=== PATIENT | male | born 1980 | race African-American/Black ===

== ENCOUNTER 2017-04-13 18:10 | Emergency (ER) | payer MEDICAID ==
[~2017-04-13] VITALS: Ht 167.6 cm; Wt 72.6 kg
[2017-04-13 18:23] VITALS: BP 131/87
[2017-04-13] MEDS ORDERED: NORCO 5-325 TA1 EACH ORAL (20:10)
[2017-04-13] MEDS ORDERED: IBUPROFEN600 MG ORAL (20:10)
[2017-04-13 20:14] VITALS: BP 124/91
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
--- NOTE | 2017-04-14 09:56 | Diagnostic Imaging Report ---
Indication: Trauma Technique: Continuous helical transaxial imaging of the maxillofacial structures obtained without intravenous contrast administration. Coronal 2-D reformats were also obtained. Study obtained in a Siemens sensation [address] Total Dose length Product (DLP): [address] Dose Index Volume (CTDIvol): 28 mGy Comparison: None Findings: There is acute fracture of the anterior wall the left maxillary sinus extending into the inferior orbital floor. There is herniation of a small amount of orbital fat through the fracture defect. There is also fracture of the anteromedial part of the left orbit. The inferior rectus muscle does not appear entrapped. There is no retrobulbar hemorrhage or hematoma. There is no proptosis. There is mucosal thickening in ethmoid sinus. Impression: Acute fracture of the left orbital floor. No definite evidence of rectus muscle entrapment. Please correlate clinically. Mild fracture of the anteromedial orbit as well. Dr. Izquierdo has communicated the preliminary results to the Emergency Department. There are no significant discrepancies. The CT scanner at [facility] is accredited by the [employer] and the scans are performed using dose optimization techniques as appropriate to a performed exam including Automatic Exposure control.
== END 2017-04-13 20:14 | disposition home or self-care (01) ==
LOC: EMR 18:45
DX: S02.32XA Fracture of orbital floor, left side, initial encounter for closed fracture (principal); S01.511A Laceration without foreign body of lip, initial encounter; S02.80XA Fracture of other specified skull and facial bones, unspecified side, initial encounter for closed fracture; Y04.2XXA Assault by strike against or bumped into by another person, initial encounter; Y93.9 Activity, unspecified; Y92.9 Unspecified place or not applicable
CPT/HCPCS: 70486; 99284

== ENCOUNTER 2020-12-09 12:19 | Emergency (ER) | payer MEDICAID ==
[~2020-12-09] VITALS: Ht 175.3 cm; Wt 74.8 kg
[~2020-12-09 12:19] MED LIST: IBUPROFEN600 MG ORAL; NORCO 5-325 TA1 EACH ORAL
[2020-12-09 12:38] VITALS: BP 126/70
[2020-12-09] MEDS ORDERED: cefTRIAXone 1 GM in NS 55 ML IVPB ONE (13:00)
[2020-12-09] MEDS ORDERED: Lidocaine 2% Visc 15ml soln ORAL ONE (13:00)
[2020-12-09 13:08] LABS: BASOPHILS % (AUTO) 0.4 % (0.0-2.0); EOSINOPHILS % (AUTO) 0.1 % (0.0-3.0); HEMATOCRIT 44.8 % (42.0-52.0); HEMOGLOBIN 13.9 G/DL (14.2-18.0); LYMPHOCYTES % (AUTO) 6.9 % (20.0-45.0); MEAN CORPUSCULAR VOLUME 96 FL (80-99); MONOCYTES % (AUTO) 9.1 % (1.0-10.0); NEUTROPHILS % (AUTO) 83.4 % (45.0-75.0); PLATELET COUNT 252 K/UL (150-450); RED BLOOD COUNT 4.66 M/UL (4.70-6.10); RED CELL DISTRIBUTION WIDTH 11.6 % (11.6-14.8); WHITE BLOOD COUNT 17.8 K/UL (4.8-10.8)
[2020-12-09 13:16] LABS: ANION GAP 11 mmol/L (5-15); BLOOD UREA NITROGEN 12 mg/dL (7-18); CALCIUM 9.7 MG/DL (8.5-10.1); CARBON DIOXIDE 27 MMOL/L (21-32); CHLORIDE 103 MMOL/L (98-107); CREATININE 1.3 MG/DL (0.55-1.30); POTASSIUM 3.8 MMOL/L (3.5-5.1); SODIUM 141 MMOL/L (136-145)
--- NOTE | 2020-12-09 13:19 | Emergency Room Report ---
History of Present Illness General Chief Complaint: General Complaint Source: Patient Present Illness HPI Patient is a 40-year-old male who presents for increased generalized body aches and sore throat for the past3- 4 days. Increased painful swallowing. Patient denies any vomiting or diarrhea. Reports having generalized body aches and muscle aches. Has been unable to swallow. Denies being a smoker other than marijuana. Allergies: Coded Allergies: No Known Allergies (Unverified , 12/09/20) COVID-19 Screening Contact w/high risk pt: No Experienced COVID-19 symptoms?: No COVID-19 Testing performed EYEGLASS LENS GENERATOR: No Patient History Past Medical History: see triage record Reviewed Nursing Documentation: PMH: Agreed; PSxH: Agreed Nursing Documentation-PMH Past Medical History: No Stated History Review of Systems All Other Systems: negative except mentioned in HPI Physical Exam Vital Signs Date Time Temp Pulse Resp B/P (MAP) Pulse Ox O2 Delivery O2 Flow Rate FiO2 12/09/20 12:38 98.8 88 18 126/70 (88) 98 Room Air Sp02 EP Interpretation: reviewed, normal General Appearance: normal inspection, well appearing, no apparent distress, alert Head: atraumatic ENT: normal ENT inspection, hearing grossly normal, normal voice Neck: normal inspection, full range of motion, supple, no bony tend Respiratory: normal inspection, lungs clear, normal breath sounds, no respiratory distress, no retraction, no wheezing Cardiovascular #1: regular rate, rhythm, no edema Gastrointestinal: normal inspection, normal bowel sounds, non tender, soft, no guarding, no hernia Genitourinary: no CVA tenderness Musculoskeletal: normal inspection, back normal, normal range of motion Neurologic: alert, responsive, speech normal, normal inspection Psychiatric: normal inspection, judgement/insight normal, mood/affect normal Medical Decision Making Diagnostic Impression: Primary Impression: Tonsillitis ER Course Patient presents for sore throat. Differential diagnosis include was not limited to tonsillitis, peritonsillar abscess, coronavirus infection, influenza among others. Because of complexity of patient's case laboratory tests and imaging studies were ordered.Patient is laboratory testing showed elevated white blood count. CT imaging was ordered to patient's recent increase of her throat to rule out abscess. Last Vital Signs Date Time Temp Pulse Resp B/P (MAP) Pulse Ox O2 Delivery O2 Flow Rate FiO2 12/09/20 12:38 98.8 88 18 126/70 (88) 98 Room Air Referrals: NON PHYSICIAN (PCP) Yariel Jimenez MD Dec 09, 2020 13:19
[2020-12-09 13:20] LABS: ALANINE AMINOTRANSFERASE 94 U/L (12-78); ALBUMIN 3.9 G/DL (3.4-5.0); ALBUMIN/GLOBULIN RATIO 0.9 (1.0-2.7); ALKALINE PHOSPHATASE 125 U/L (46-116); ASPARTATE AMINO TRANSFERASE 67 U/L (15-37); BILIRUBIN,TOTAL 0.7 MG/DL (0.2-1.0)
--- NOTE | 2020-12-09 14:34 | Diagnostic Imaging Report ---
Indication: Generalized body aches and sore throat for the past 3 or 4 days, increased painful swallowing Technique: IV administration nonionic contrast. Spiral acquisitions obtained through the neck. Multiplanar reconstructions were generated. Total dose length product 463 mGycm. CTDIvol(s) 14 mGy. Dose reduction achieved using automated exposure control Comparison: No comparison neck CT scan. Reference is made to a facial CT dated 04/13/2017 Findings: The bilateral tonsillar pillars are prominent and enhances heterogeneously. The surface is somewhat irregular as well. There is a small amount of contrast enhancement about the vallecula. The larynx appears unremarkable. The trachea and proximal bronchi appear unremarkable. No significant prevertebral soft tissue swelling is demonstrated. No circumscribed rim enhancing fluid collection to suggest abscess is demonstrated. Prominent cervical nodes are seen bilaterally, with jugulodigastric nodes measuring up to 2.5 cm in long axis dimension demonstrated bilaterally. The salivary glands are unremarkable. There are bilateral maxillary sinus polyps versus mucous retention cysts. The bones are unremarkable. The visualized intercranial structures are unremarkable. The dentition is intact. Unremarkable thyroid Impression: Enlarged and heterogeneous bilateral tonsillar pillars as well as enhancing tissue in the right side of the vallecula, most likely indicating tonsillitis. There is some surface irregularity, so direct inspection recommended to exclude neoplastic involvement. No evidence of cervical abscess Somewhat prominent lymph nodes bilaterally, probably reactive or could be baseline for this patient as findings are similar to an earlier 2017 noncontrast exam. Minimal sinus disease The CT scanner at [facility] is accredited by the [employer] and the scans are performed using protocols designed to limit radiation exposure to as low as reasonably achievable to attain images of sufficient resolution adequate for diagnostic evaluation.
[2020-12-09] MEDS ORDERED: LIDOCAINE VISC100 ML ORAL (14:38)
[2020-12-09] MEDS ORDERED: IBUPROFEN600 M1 ORAL (14:38)
[2020-12-09] MEDS ORDERED: AUGMENTIN 875-1 EAC1 ORAL (14:38)
== END 2020-12-09 16:13 | disposition home or self-care (01) ==
LOC: EMR 12:51
DX: J03.90 Acute tonsillitis, unspecified (principal)
CPT/HCPCS: 36415; 70491; 80053; 85025; 86710; 96361; 96365; 96375; J0696; J1100; J7030; Q9967; Z7502; 99284